=== PATIENT | male | born 1965 | race African-American/Black ===

== ENCOUNTER 2023-09-29 16:00 | Inpatient (IN) | payer MEDICAID ==
[~2023-09-29] VITALS: Ht 180.3 cm; Wt 125.6 kg
[2023-09-29 17:30] LABS: BASOPHILS % (AUTO) 0.8 % (0.0-2.0); EOSINOPHILS % (AUTO) 3.2 % (1.0-6.0); HEMATOCRIT 40.9 % (41-53); HEMOGLOBIN 13.6 g/dL (13.5-17.5); LYMPHOCYTES # (AUTO) 2.6 K/uL (1.0-4.8); LYMPHOCYTES % (AUTO) 29.2 % (22.0-44.0); MEAN CORPUSCULAR HGB CONC 33.3 G/dL (31.0-37.0); MEAN CORPUSCULAR VOLUME 75 fL (80-100); MONOCYTES # (AUTO) 0.8 K/uL (0.1-1.0); NEUTROPHILS # (AUTO) 5.2 K/uL (1.8-7.7); NEUTROPHILS % (AUTO) 57.8 % (40.0-70.0); PLATELET COUNT (AUTO) 204 K/uL (150-450); RED BLOOD CELL COUNT(AUTO) 5.46 MIL/uL (4.50-5.90); RED CELL DISTRIBUTION WIDTH 14.8 % (11.5-14.5)
[2023-09-29 17:42] LABS: ANION GAP 6 mmol/L (8-16); CALCIUM, TOTAL 8.9 mg/dL (8.8-10.5); CARBON DIOXIDE 30 mmol/L (22-29); CHLORIDE 102 mmol/L (98-107); CREATININE 1.37 mg/dL (0.60-1.30); GLOMERULAR FILTR. RATE CALC > 60 mL/min (>60); GLUCOSE,RANDOM 132 mg/dL (70-110); POTASSIUM 3.7 mmol/L (3.5-5.1); SODIUM SERUM 138 mmol/L (136-145); UREA NITROGEN, BLOOD 17 mg/dL (7-18)
[2023-09-29 17:49] LABS: TROPONIN I-HIGH SENSITIVITY 22 ng/L (<76)
[2023-09-29 17:53] LABS: ALCOHOL, BLOOD (SERUM) < 3 mg/dL (0-10)
[2023-09-29 18:06] LABS: ALANINE AMINOTRANSFERASE 32 U/L (12-78); ALBUMIN 3.4 g/dL (3.4-5.0); ALKALINE PHOSPHATASE 84 U/L (46-116); ASPARTATE AMINOTRANSFERASE 20 U/L (15-37); BILIRUBIN,TOTAL 0.2 mg/dL (0.1-1.0); CREATINE KINASE, TOTAL ONLY 192 U/L (39-308); TOTAL PROTEIN, SERUM 7.2 g/dL (6.4-8.2)
[2023-09-29 19:02] LABS: B-TYPE NATRIURETIC PEPTIDE 31 pg/mL (0-100)
[2023-09-29] MEDS ORDERED: 0.9% SODIUM CHLORIDE 10 ML SYRINGE IVP PRN (20:30)
[2023-09-29] MEDS ORDERED: ONDANSETRON HCL 4 MG/2 ML VIAL IVP PRN ×2 (20:30)
[2023-09-29] MEDS ORDERED: ACETAMINOPHEN 325 MG TABLET PO PRN ×2 (20:30)
[2023-09-29] MEDS ORDERED: BISACODYL 10 MG RECTAL RECTAL SUPPOSITORY PR PRN (20:30)
[2023-09-29] MEDS ORDERED: HYDROCODONE/ACETAMINOPHEN 5-325 MG TABLET PO PRN (20:30)
[2023-09-29] MEDS ORDERED: ZOLPIDEM TARTRATE 5 MG TABLET PO PRN (20:30)
[2023-09-29] MEDS ORDERED: MORPHINE SULFATE 2 MG/ML SYRINGE IVP PRN (20:30)
[2023-09-29] MEDS ORDERED: MAGNESIUM HYDROXIDE SUSPENSION 30 ML UDCUP PO PRN (20:30)
[2023-09-29] MEDS: DOCUSATE SODIUM 100 MG CAPSULE PO SCH (20:49)
[2023-09-29 21:00] LABS: COVID AG,FIA SOURCE NASAL SWAB
[2023-09-29 21:37] LABS: SARS-COV2 (COVID) ANTIGEN,FIA Negative (Negative)
[2023-09-29 22:00] VITALS: O2SAT 96
[2023-09-29 22:30] VITALS: BP 162/110; PULSE 59; RESP 18; TEMP 98.3
[2023-09-30] VITALS (7 sets, daily range): BP systolic 132–170; BP diastolic 86–123; PULSE 54–78; RESP 16–19; TEMP 97.4–98.1
[2023-09-30 06:37] LABS: BASOPHILS % (AUTO) 0.9 % (0.0-2.0); EOSINOPHILS % (AUTO) 4.4 % (1.0-6.0); HEMOGLOBIN 13.7 g/dL (13.5-17.5); LYMPHOCYTES # (AUTO) 3.1 K/uL (1.0-4.8); LYMPHOCYTES % (AUTO) 39.5 % (22.0-44.0); MEAN CORPUSCULAR HEMOGLOBIN 25.4 pg (26.0-34.0); MEAN CORPUSCULAR HGB CONC 33.4 G/dL (31.0-37.0); MEAN CORPUSCULAR VOLUME 76 fL (80-100); MONOCYTES # (AUTO) 0.7 K/uL (0.1-1.0); MONOCYTES % (AUTO) 8.3 % (2.0-9.0); NEUTROPHILS # (AUTO) 3.7 K/uL (1.8-7.7); NEUTROPHILS % (AUTO) 46.9 % (40.0-70.0); PLATELET COUNT (AUTO) 205 K/uL (150-450); WHITE BLOOD COUNT (AUTO) 7.9 K/uL (4.5-11.0)
[2023-09-30 07:27] LABS: ALANINE AMINOTRANSFERASE 29 U/L (12-78); ALBUMIN 3.3 g/dL (3.4-5.0); ALKALINE PHOSPHATASE 78 U/L (46-116); ANION GAP 10 mmol/L (8-16); ASPARTATE AMINOTRANSFERASE 22 U/L (15-37); BILIRUBIN,TOTAL 0.4 mg/dL (0.1-1.0); CALCIUM, TOTAL 8.7 mg/dL (8.8-10.5); CARBON DIOXIDE 27 mmol/L (22-29); CHLORIDE 104 mmol/L (98-107); CREATININE 1.12 mg/dL (0.60-1.30); GLOMERULAR FILTR. RATE CALC > 60 mL/min (>60); GLUCOSE,RANDOM 103 mg/dL (70-110); POTASSIUM 3.7 mmol/L (3.5-5.1); SODIUM SERUM 141 mmol/L (136-145); UREA NITROGEN, BLOOD 16 mg/dL (7-18)
[2023-09-30] MEDS ORDERED: PANTOPRAZOLE SODIUM 40 MG DR TABLET PO SCH (09:00)
[2023-09-30] MEDS: DOCUSATE SODIUM 100 MG CAPSULE PO SCH (09:00)
[2023-09-30] MEDS: HEPARIN SODIUM,PORCINE 5,000 UNITS/ML VIAL SQ SCH ×4 (09:28→15:56)
[2023-09-30] MEDS ORDERED: ATOR40TA71 PO (10:04)
[2023-09-30] MEDS ORDERED: AMLO10TA55 PO (10:05)
[2023-09-30] MEDS ORDERED: ASPI81TA87 PO (10:05)
[2023-09-30] MEDS ORDERED: COLC0.6T68 PO (10:06)
[2023-09-30] MEDS ORDERED: LORazepam 2 MG/ML VIAL IVP PRN ×2 (10:30)
[2023-09-30] MEDS ORDERED: SUMAtriptan SUCCINATE 25 MG TABLET PO PRN (11:30)
[2023-09-30] MEDS ORDERED: COLCHICINE 0.6 MG TABLET PO PRN (11:30)
[2023-09-30] MEDS ORDERED: AmLODIPine BESYLATE 10 MG TABLET PO ONE (12:45)
[2023-09-30] MEDS ORDERED: HYDROCHLOROTHIAZIDE 25 MG TABLET PO SCH (15:45)
[2023-10-01] MEDS ORDERED: ASPIRIN 81 MG DR TABLET PO SCH (09:00)
[2023-10-01] MEDS ORDERED: AmLODIPine BESYLATE 10 MG TABLET PO SCH (09:00)
[2023-10-01] MEDS ORDERED: ATORVASTATIN CALCIUM 40 MG TABLET PO SCH (09:00)
== END 2023-09-30 17:40 | disposition home or self-care (01) | DRG 82 ==
LOC: EMS 16:01 → 5S 20:27
PROVIDERS: ADMIT Internal Medicine; ATTEND Internal Medicine
DX: H53.2 Diplopia (principal); E78.5 Hyperlipidemia, unspecified; G43.909 Migraine, unspecified, not intractable, without status migrainosus; Z20.822 Contact with and (suspected) exposure to COVID-19; M10.9 Gout, unspecified; I12.9 Hypertensive chronic kidney disease with stage 1 through stage 4 chronic kidney disease, or unspecified chronic kidney disease; N18.9 Chronic kidney disease, unspecified
CPT/HCPCS: 70450; 70551; 80053; 82550; 83036; 83880; 84484; 85025; 93005; 93880; 99285; G0480; J1644; J2060

== ENCOUNTER 2024-08-17 16:36 | Emergency (ER) | payer MEDICAID ==
[~2024-08-17] VITALS: Ht 180.3 cm; Wt 122.7 kg
[~2024-08-17 16:36] MED LIST: AMLO10TA55 PO; ASPI81TA87 PO; ATOR40TA71 PO; COLC0.6T68 PO
[2024-08-17 17:12] LABS: COVID AG,FIA SOURCE NASAL SWAB
[2024-08-17 17:37] LABS: SARS-COV2 (COVID) ANTIGEN,FIA Negative (Negative)
[2024-08-17 17:39] LABS: INFLUENZA TYPE A NEGATIVE FOR TYPE A (NEGATIVE); INFLUENZA TYPE B NEGATIVE FOR TYPE B (NEGATIVE)
[2024-08-17 21:07] VITALS: BP 206/118; TEMP 99.2
[2024-08-17] MEDS: ACETAMINOPHEN 325 MG TABLET PO ONE (21:20)
[2024-08-17] MEDS: PredniSONE 20 MG TABLET PO ONE (21:28)
[2024-08-17 21:34] LABS: BASOPHILS % (AUTO) 0.5 % (0.0-2.0); EOSINOPHILS % (AUTO) 2.9 % (1.0-6.0); HEMATOCRIT 42.7 % (41-53); HEMOGLOBIN 14.4 g/dL (13.5-17.5); LYMPHOCYTES # (AUTO) 1.1 K/uL (1.0-4.8); LYMPHOCYTES % (AUTO) 10.8 % (22.0-44.0); MEAN CORPUSCULAR HEMOGLOBIN 25.4 pg (26.0-34.0); MEAN CORPUSCULAR HGB CONC 33.6 G/dL (31.0-37.0); MEAN CORPUSCULAR VOLUME 76 fL (80-100); MONOCYTES # (AUTO) 1.1 K/uL (0.1-1.0); MONOCYTES % (AUTO) 10.9 % (2.0-9.0); NEUTROPHILS # (AUTO) 7.8 K/uL (1.8-7.7); NEUTROPHILS % (AUTO) 74.9 % (40.0-70.0); PLATELET COUNT (AUTO) 185 K/uL (150-450); RED BLOOD CELL COUNT(AUTO) 5.65 MIL/uL (4.50-5.90); RED CELL DISTRIBUTION WIDTH 15.2 % (11.5-14.5); WHITE BLOOD COUNT (AUTO) 10.5 K/uL (4.5-11.0)
[2024-08-17 21:42] VITALS: PULSE 97; RESP 20; O2SAT 96
[2024-08-17] MEDS: IPRATROPIUM BROMIDE 0.5 MG/2.5 ML NEB SOLUTION NEB ONE (21:42)
[2024-08-17] MEDS: ALBUTEROL SULFATE 2.5 MG/0.5 ML NEB SOLUTION NEB ONE (21:42)
[2024-08-17 21:43] LABS: ANION GAP 6 mmol/L (8-16); CALCIUM, TOTAL 8.5 mg/dL (8.8-10.5); CARBON DIOXIDE 32 mmol/L (22-29); CHLORIDE 103 mmol/L (98-107); CREATININE 1.25 mg/dL (0.60-1.30); GLOMERULAR FILTR. RATE CALC > 60 mL/min (>60); GLUCOSE,RANDOM 98 mg/dL (70-110); SODIUM SERUM 141 mmol/L (136-145); UREA NITROGEN, BLOOD 13 mg/dL (7-18)
[2024-08-17 21:51] LABS: TROPONIN I-HIGH SENSITIVITY 49 ng/L (<76)
[2024-08-17 21:53] LABS: B-TYPE NATRIURETIC PEPTIDE 24 pg/mL (0-100)
[2024-08-17 21:57] VITALS: PULSE 91; RESP 20; O2SAT 97
[2024-08-17] MEDS ORDERED: AZIT250T9 PO (22:12)
[2024-08-17] MEDS ORDERED: ALBU18HF12 IH (22:12)
[2024-08-17] MEDS ORDERED: GUAIFDM PO (22:12)
[2024-08-17] MEDS ORDERED: LISI-894 PO (22:12)
[2024-08-17] MEDS ORDERED: ACET-66 PO (22:12)
[2024-08-17] MEDS: LISINOPRIL 10 MG TABLET PO ONE (22:19)
== END 2024-08-17 22:36 | disposition home or self-care (01) ==
LOC: EMS 16:36
DX: J18.9 Pneumonia, unspecified organism (principal); I11.9 Hypertensive heart disease without heart failure; Z20.822 Contact with and (suspected) exposure to COVID-19
CPT/HCPCS: 99285; 71045; 87426; 80048; 83880; 84484; 85025; 87804; 36415; 94640; 93005; J7512; J7613